=== PATIENT | female | born 1985 | race Caucasian/White ===

== ENCOUNTER 2024-10-25 14:53 | Emergency (ER) | payer MEDICAID, SELFPAY ==
[2024-10-25 14:54] VITALS: BP 151/96; PULSE 68; RESP 16; TEMP 36.7; O2SAT 99; BMI 26.6
--- NOTE | 2024-10-25 15:14 | EKG12_ITS ---
Test Reason : Blood Pressure : */* mmHG Vent. Rate : 70 BPM Atrial Rate : 70 BPM P-R Int : 178 ms QRS Dur : 76 ms QT Int : 398 ms P-R-T Axes : 69 70 51 degrees QTcB Int : 429 ms Normal sinus rhythm Normal ECG Confirmed by Rashid Wise ([id number]), industrial editor FRANSISCO SERRANO ([id number]) on 10/29/2024 1:17:39 PM Referred By: ALY/CJ Confirmed By: Rashid Wise
--- NOTE | 2024-10-25 15:14 | CT_ITS ---
PROCEDURE: CTA HEAD AND NECK W/ CONTRAST 10/25/2024 REASON FOR EXAM: ANEURYSM/DISSECTION TECHNIQUE: CTA imaging of the head and neck from the aortic arch to the skull vertex with out contrast and with intravenous contrast. Multiplanar and multisequence images were obtained. CONTRAST: Omnipaque 350 VOLUME: 100 mL Not Provided Gauge IV One or more dose reduction techniques were used (e.g., Automated exposure control, adjustment of the mA and/or kV according to patient size, use of iterative reconstruction technique). COMPARISON: None FINDINGS: CT brain: * ACUTE: No acute infarct or hemorrhage. No mass effect or herniation. * BRAIN PARENCHYMA: Signal intensities are within normal limits for age. * VENTRICLES/EXTRA-AXIAL SPACES: No hydrocephalus or extra-axial fluid collections. * EXTRACRANIAL STRUCTURES: Visualized osseous structures are normal. Soft tissues are normal. CTA head and neck: Aortic Arch: Normal size and branching pattern. No significant atherosclerotic plaque. Brachiocephalic and Subclavians: Unremarkable RIGHT Carotid: Right CCA: Unremarkable. Right ICA: Unremarkable. Maximum stenosis (NASCET): 0 % Right ECA: Unremarkable. LEFT Carotid: Left CCA: Unremarkable. Left ICA: Unremarkable. Maximum stenosis (NASCET): 0 % Left ECA: Unremarkable. Vertebrals: Codominant. Arise from the subclavians. Both vertebrals form the basilar. RIGHT Vertebral: Unremarkable. LEFT Vertebral: Unremarkable. Anatomy: [place] anatomy is normal. Aneurysm or avm: No intracranial aneurysms or large vascular malformations are identified. Anterior cerebral arteries: Unremarkable: Middle cerebral arteries: Unremarkable. Basilar artery: Unremarkable. Posterior cerebral arteries: Unremarkable. Other major branches of the posterior circulation: Unremarkable. Major venous structures: Unremarkable. Other findings: Neck: No lymphadenopathy. Lungs: Lung apices are clear. Bones: Bones are unremarkable. CT/CTA Head AND Neck W/ Contrast IMPRESSION: CT brain: No acute intracranial abnormality. CTA head and neck: Patent anterior and posterior intracranial and extracranial circulation. Reading Location[facility]
--- NOTE | 2024-10-25 15:15 | EX.ED.DYSGE1 ---
HPI History of Present Illness Chief Complaint: Headache Informant: patient and EMS Narrative Narrative: 39-year-old female presenting to the emergency room with a chief complaint of syncope. Patient states that she has had similar episodes over the past several months but not as intense as today's. She states that she stood up and suddenly got any significant pressure in her head and felt a whooshing sensation. She states her vision tunneled and as it came back she began to have visual disturbance in the left eye and then the right in the periphery described as twinkling lights. She states that she felt near syncopal. She stated that she had this intense head pressure that went away over 10 minutes as her vision changed. She states he also felt the left side of her body did not feel as coordinated and strong as the right. Patient notes that she is on several medications including prazosin. The only change those medicines was an increased dose of Pristiq 2 days ago. Patient has not sought evaluation or treatment for this previously. [facility] Medical History Tardive dyskinesia Acute migraine OCD (obsessive compulsive disorder) PTSD (post-traumatic stress disorder) Bipolar 1 disorder Home Medications ?Medication ?Instructions ?Recorded ?Last Taken ?Type lamotrigine 50 mg tablet,extended 75 mg PO DAILY 10/25/24 Unknown History release 24 hr (Lamictal XR) Allergy/AdvReac Type Severity Reaction Status Date / Time amoxicillin (From Augmentin) AdvReac Mild Vomiting Verified 10/25/24 14:57 clavulanic acid (From AdvReac Mild Vomiting Verified 10/25/24 14:57 Augmentin) Surgical History no surgical history Social History Smoking Status: Current every day smoker tobacco type: cigarettes ROS ROS ED Constitutional Constitutional ED: Denies chills, fever(s) or weight loss Eyes Eyes: Reports change in vision; Denies blurry vision or diplopia ENT ENT ED: Reports rhinorrhea; Denies ear pain or sore throat Cardiovascular Cardiovascular: Denies chest pain, orthopnea, palpitations or racing heartbeat Respiratory/Chest Respiratory/Chest: Reports cough and other Details: Near syncopal ; Denies dyspnea or orthopnea Gastrointestinal Gastrointestinal: Denies abdominal pain, diarrhea, nausea or vomiting Genitourinary Genitourinary ED: Denies dysuria, hematuria or urinary frequency Musculoskeletal Musculoskeletal: Denies arthralgias or myalgias Integumentary Denies abscess or rash Neurologic Neurologic: Reports headache(s) and weakness; Denies paresthesias Psychiatric Psychiatric: Denies anxiety, depression, suicidal ideation or suicidal thoughts Endocrine Endocrinology: Denies polydipsia, polyphagia or polyuria Allergic/Immunologic Allergic/Immunologic ED: Denies mouth swelling, tongue swelling or urticaria EXAM Physical Exam Const Vital Signs: 10/25/24 14:54 10/25/24 16:53 Temperature 98.1 F Temperature Source Oral Pulse Rate 68 80 Respiratory Rate 16 18 Blood Pressure 151/96 H 128/78 H Blood Pressure Mean 114 94 Pulse Ox 99 98 Oxygen Delivery Method Room Air Positive well nourished and well developed General Appearance ED: well developed and NAD HEENT Reports normocephalic, head/scalp atraumatic and moist mucous membranes Eyes PERRL and EOMs intact bilaterally Neck no lymphadenopathy, supple and no JVD Resp normal respiratory effort and clear to auscultation bilaterally Cardio regular rate, regular rhythm and no murmurs GI normal to inspection, nondistended, normoactive bowel sounds and non-tender Palpation: soft Back/Spine no CVA tenderness and normal ROM Extremity normal to inspection General Extremety ED: Negative for edema General Extremity: Negative for edema Neuro oriented x3 and CN's II-XII intact bilaterally Sensorium / Orientation: alert Motor Exam: strength 5/5 throughout Psych mental status grossly normal Mood & Affect: Negative for depressed or tearful Skin no rashes or lesions noted and no wounds MDM MDM MDM Narrative Medical decision making narrative: Differential diagnosis includes but not limited to migraine vasovagal syncope orthostatic hypotension malignancy dissection aneurysm cardiac dysrhythmia electrolyte abnormalities medication side effect Basic blood work showed a white count 9.4 hemoglobin 12.7 platelet count of 242. Sodium is noted to be 125. Patient states that she does drink case significant amount of water each day. Urinalysis showed a low specific gravity 1.005 no overt infection. test is negative. Normal LFTs. Normal creatinine. CTA head and neck does not demonstrate any obvious aneurysm dissection or clot or mass. Patient was encouraged to follow-up with her primary care doctor. We talked about a variety of possibilities that this could be. At this point I do not see an emergent reason to keep her in the hospital. Patient is comfortable with this plan will return if worsening or concerns History & Record Review Discussion w/independent historian: EMS personnel and Patient Lab Data Attestation: I reviewed the patient's lab results. Labs: Laboratory Results - last 24 hr 10/25/24 10/25/24 14:55 15:59 WBC 9.4 RBC 3.97 L Hgb 12.7 Hct 35.3 L MCV 88.9 MCH 32.0 MCHC 36.0 RDW Std Deviation 39.3 RDW Coeff of Farideh 12.1 Plt Count 242 MPV 10.1 Immature Gran % (Auto) 0.400 Neut % (Auto) 78.1 H Lymph % (Auto) 15.0 L [place] % (Auto) 5.7 Eos % (Auto) 0.4 Baso % (Auto) 0.4 Absolute Neuts (auto) 7.4 Absolute Lymphs (auto) 1.41 Nucleated RBC % 0 Sodium 125 L Potassium 4.0 Chloride 94 L Carbon Dioxide 21.0 Anion Gap 10 BUN 7 Creatinine 0.66 L Estim Creat Clear Calc 119.58 Est GFR (MDRD) Non-Af 115 BUN/Creatinine Ratio 9.9 L Glucose 88 Calcium 8.6 Total Bilirubin 0.28 AST 23 ALT 23 Alkaline Phosphatase 63 Total Protein 6.4 Albumin 4.1 Globulin 2.3 Albumin/Globulin Ratio 1.8 Serum , Qual NEGATIVE Urine Color Straw Urine Clarity Clear Urine pH 7.0 Ur Specific [place] 1.005 Urine Protein Negative Urine Glucose (UA) Normal Urine Ketones Negative Urine Occult Blood Negative Urine Nitrite Negative Urine Bilirubin Negative Urine Urobilinogen Normal Ur Leukocyte Esterase Negative Radiography Diagnostic Testing: Clinical Impression(s) from Imaging Studies Head/Neck CTA 10/25/24 15:14 IMPRESSION: CT brain: No acute intracranial abnormality. CTA head and neck: Patent anterior and posterior intracranial and extracranial circulation. Reading Location[facility] [place] EKG Initial EKG: Attestation: I personally reviewed and interpreted this EKG as follows: Comments: Normal sinus rhythm ventricular rate of 70 bpm Discharge Plan Triage Chief Complaint: Headache ED Provider: Lc Austin Dx/Rx/DC Orders Clinical Impression: Headache, Near syncope, Hyponatremia Instructions: ED Headache Unspecified, ED Near-Fainting, Uncertain Cause Prescriptions: No Action lamotrigine [Lamictal XR] 50 mg tablet extended release 24hr 75 mg PO DAILY Primary Care Provider: Bernadette Turner Referrals: Bernadette Turner MD [Primary Care Provider] - 1 Week Print Language: Omani Disposition Disposition: Home, Self Care
[2024-10-25 15:39] LABS: Absolute Lymphocyte Count 1.41 X10^3/uL (0.83-4.51); Absolute Neutrophil Count 7.4 X10^3/uL (2.0-7.7); Basophil# 0.04 X10^3/uL; Basophil% 0.4 % (0-1); Eosinophil# 0.04 X10^3/uL; Eosinophils% 0.4 % (0-5); Hematocrit 35.3 % (37-47); Hemoglobin 12.7 g/dL (12.0-15.0); Lymphocyte # 1.41 X10^3/ul (0.83-4.51); Mean Corpuscular Volume 88.9 fL (81-99); Mean Platelet Vol. 10.1 fl (6.2-12.0); Monocyte# 0.54 X10^3/uL; Monocyte% 5.7 % (0-10); NRBC Flagged by Analyzer 0 % (0-5); Neutrophil # 7.35 X10^3/uL (2.7-7.7); Neutrophil % 78.1 % (47-70); Platelet Count 242 K/mm3 (150-450); RBC Distribution Width CV 12.1 % (11.6-14.6); RBC Distribution Width SD 39.3 fl (35.1-43.9); Red Blood Count 3.97 M/mm3 (4.2-5.4); White Blood Count 9.4 K/mm3 (4.4-11.0)
[2024-10-25 16:08] LABS: Bacteria 0 SEEN /hpf (None Seen); Mucous, Urine 0 SEEN /hpf (<or=2+); Red Blood Cells-Urine 0 SEEN /hpf (0-5); Squamous Epithelial Cells - UA 0 SEEN /hpf (5-10)
[2024-10-25 16:09] LABS: ALB/GLOB Ratio 1.8 RATIO (0.9-2.4); AST(SGOT) 23 U/L (<=31); Alanine Aminotransfer ALT/SGPT 23 U/L (<=34); Albumin, Serum 4.1 g/dL (3.5-5.0); Alkaline Phosphatase 63 U/L (35-104); Anion Gap 10 (5-15); BUN 7 mg/dL (4-19); BUN/Creat Ratio 9.9 RATIO (10-20); Calcium,Total 8.6 mg/dL (7.6-11.0); Chloride 94 mmol/L (98-108); Creatinine, Serum 0.66 mg/dL (0.70-1.20); EST Glomerular Filtration Rate 115 (>60); Estimated Creatinine Clearance 119.58 ml/min (50-250); Globulin 2.3 g/dL (2.2-4.2); Glucose 88 mg/dL (70-99); Protein, Total 6.4 g/dL (5.9-8.4); Sodium Level 125 mmol/L (133-145); Total Bilirubin 0.28 mg/dL (0.00-1.30)
[2024-10-25 16:25] LABS: Internal QC Validated? YES +Cl - CLEAR BKGD; Pregnancy, Serum, hCG Quali. NEGATIVE Negative
[2024-10-25 16:34] LABS: Color, Urine Straw (Yellow); Glucose, Dipstick Normal (Normal); Ketone-Dipstick Negative (Negative); Leukocyte Esterase-Dipstick Negative /ul (Negative); Nitrite-Dipstick Negative (Negative); Occult Blood-Urine Negative /ul (Negative); Protein-Dipstick Negative (Negative); Specific Gravity, Urine 1.005 (1.002-1.030); Urine Bilirubin Dipstick Negative (Negative); Urine Clarity Clear (Clear); Urine Urobilinogen Normal (Normal)
[2024-10-25 16:53] VITALS: BP 128/78; PULSE 80; RESP 18; O2SAT 98
[2024-10-25 17:14] VITALS: BP 128/78; PULSE 80; RESP 18; TEMP 36.6; O2SAT 98
[2024-10-25 17:48] LABS: White Blood Cells 0-5 SEEN /hpf (0-5)
== END 2024-10-25 17:14 | disposition home or self-care (01) ==
PROVIDERS: Emergency Provider Emergency Medicine; PCP Family Medicine; Visit Provider Emergency Medicine
DX: R51.9 Headache, unspecified (principal); F31.9 Bipolar disorder, unspecified; R55 Syncope and collapse; E87.1 Hypo-osmolality and hyponatremia; F42.9 Obsessive-compulsive disorder, unspecified; F17.210 Nicotine dependence, cigarettes, uncomplicated
CPT/HCPCS: 70496; 70498; 80053; 81001; 84703; 85025; 93005; 99285; Q9967; A4216